=== PATIENT | female | born 2000 | race African-American/Black ===

== ENCOUNTER 2022-11-19 02:41 | Inpatient (IN) ==
[2022-11-19] MEDS ORDERED: ACETAMINOPHEN 1,000 MG/100 ML VIAL IV STA (02:54)
[2022-11-19] MEDS ORDERED: SODIUM CHLORIDE 0.9% 1000ML 1,000 ML IV SCH ×2 (03:00→07:19)
--- NOTE | 2022-11-19 03:41 | Emergency Department Note ---
History of Present Illness General Chief complaint: Cardiac Assessment Stated complaint: CHEST PAIN, HEAD PAIN, FEVER Time Seen by Provider: 11/19/22 02:54 History of Present Illness Maximum Pain Intensity: 8 This 22-year-old female originally from [place] who is up visiting from [facility] presents the ER for fever, chest pain, body aches and pains for the past day that is recurrent for the patient. Patient states she has seen other providers in the past with unclear etiology for her recurrent symptoms. Patient denies abdominal pain, neck stiffness, vomiting, diarrhea. No recent travel outside the . She currently resides in [place] but is here visiting friends. Patient was last in [facility] 5 years ago. Past Med/Surg History Social History Smoking Status: Never smoker Preferred Language: Marshallese Feels Safe at Home: Yes Review of Systems A total of 10 systems reviewed and were otherwise negative Physical Exam Vital Signs Vital Signs - 24 hr 11/19/22 02:48 11/19/22 02:54 11/19/22 02:54 Temperature 39.3 C H Temperature Source Oral Pulse Rate 143 H Pulse Rate from SpO2 Sensor Respiratory Rate 22 Respiratory Effort / Characteristics Non-Labored Respiratory Depth Normal Blood Pressure 119/65 Blood Pressure Mean 83 Pulse Oximetry 94 98 Oxygen Delivery Method Room Air Room Air Sepsis Recent Fever Within 48 Hours No Sepsis New/Unexplained Change in Mental Status No Sepsis Action Taken by Nursing No Action Required 11/19/22 03:09 11/19/22 02:54 11/19/22 03:11 Temperature Temperature Source Pulse Rate 117 H 118 H Pulse Rate from SpO2 Sensor Respiratory Rate 20 Respiratory Effort / Characteristics Respiratory Depth Blood Pressure Blood Pressure Mean Pulse Oximetry Oxygen Delivery Method Room Air Sepsis Recent Fever Within 48 Hours Sepsis New/Unexplained Change in Mental Status Sepsis Action Taken by Nursing 11/19/22 03:20 11/19/22 03:30 11/19/22 03:40 Temperature Temperature Source Pulse Rate 140 H 120 H 130 H Pulse Rate from SpO2 Sensor 121 H 130 H Respiratory Rate 19 19 14 Respiratory Effort / Characteristics Respiratory Depth Blood Pressure Blood Pressure Mean Pulse Oximetry 97 97 Oxygen Delivery Method Sepsis Recent Fever Within 48 Hours Sepsis New/Unexplained Change in Mental Status Sepsis Action Taken by Nursing 11/19/22 03:50 11/19/22 04:00 11/19/22 04:10 Temperature Temperature Source Pulse Rate 112 H 116 H 110 H Pulse Rate from SpO2 Sensor 114 H 115 H 111 H Respiratory Rate 21 23 20 Respiratory Effort / Characteristics Respiratory Depth Blood Pressure Blood Pressure Mean Pulse Oximetry 96 96 96 Oxygen Delivery Method Sepsis Recent Fever Within 48 Hours Sepsis New/Unexplained Change in Mental Status Sepsis Action Taken by Nursing 11/19/22 04:20 11/19/22 04:30 11/19/22 04:40 Temperature Temperature Source Pulse Rate 115 H 116 H 105 H Pulse Rate from SpO2 Sensor 114 H 115 H 105 H Respiratory Rate 19 21 15 Respiratory Effort / Characteristics Respiratory Depth Blood Pressure Blood Pressure Mean Pulse Oximetry 97 96 96 Oxygen Delivery Method Sepsis Recent Fever Within 48 Hours Sepsis New/Unexplained Change in Mental Status Sepsis Action Taken by Nursing 11/19/22 04:50 11/19/22 05:00 11/19/22 05:07 Temperature Temperature Source Pulse Rate 112 H 102 H 100 H Pulse Rate from SpO2 Sensor 110 H 104 H 99 H Respiratory Rate 16 15 20 Respiratory Effort / Characteristics Respiratory Depth Blood Pressure Blood Pressure Mean Pulse Oximetry 97 97 97 Oxygen Delivery Method Sepsis Recent Fever Within 48 Hours Sepsis New/Unexplained Change in Mental Status Sepsis Action Taken by Nursing 11/19/22 05:07 Temperature Temperature Source Pulse Rate Pulse Rate from SpO2 Sensor Respiratory Rate Respiratory Effort / Characteristics Respiratory Depth Blood Pressure 114/74 Blood Pressure Mean 81 Pulse Oximetry Oxygen Delivery Method Sepsis Recent Fever Within 48 Hours Sepsis New/Unexplained Change in Mental Status Sepsis Action Taken by Nursing VITALS: Vitals are noted on the nurse's note and reviewed by myself. Vital signs febrile and tachycardic. GENERAL: Pleasant female mildly ill-appearing, in no acute distress, nondiaphoretic, well-developed well-nourished. SKIN: The skin was without rashes, erythema, edema, or bruising. There is no tenting of the skin. Capillary reflex less than 2 seconds. HEAD: Normocephalic atraumatic. EARS: External auditory canals clear, tympanic membranes pearly blank without erythema or effusion bilaterally. EYES: Pupils equal round and reactive to light and accommodation. Conjunctivae without injection, sclerae without icterus. Extraocular movements intact. NOSE: Patent, turbinates without inflammation or discharge. No sinus tenderness. MOUTH: Mucous membranes moist. Pharynx without erythema or exudate. Uvula midline. Airway patent. Tongue does not deviate. NECK: Supple without nuchal rigidity. No lymphadenopathy. No thyromegaly. Cervical spine is nontender. No JVD. HEART: Tachycardic rate and rhythm LUNGS: Clear to auscultation bilaterally without wheezes, rales or rhonchi. No retractions or accessory muscle use. ABDOMEN: Positive bowel sounds x 4. Normal tympanic percussion. Soft, nontender, without masses or organomegaly. Murdock sign negative. No guarding or rebound tenderness. No CVA tenderness MUSCULOSKELETAL: No muscle atrophy, erythema, or edema noted. NEURO: Patient was alert and oriented to person place and time. Normal sensation to light and sharp touch. No focal neurological deficits. Course Administered Medications Magnesium Sulfate/Dextrose (Magnesium Sulfate / D5w) 1 gm in 100 mls @ 100 mls/hr IV Q1H JOSE Stop: 11/19/22 06:16 Last Admin: 11/19/22 04:52 Dose: 100 mls/hr Documented By: OLIVIA Discontinued Medications Acetaminophen (Ofirmev) 1,000 mg in 100 mls @ 400 mls/hr IV NOW STA Stop: 11/19/22 03:08 Last Admin: 11/19/22 03:37 Dose: 400 mls/hr Documented By: OLIVIA Sodium Chloride (Nss 1000ml) 1,000 mls @ 999 mls/hr IV .Q1H1M JOSE Stop: 11/19/22 04:00 Last Admin: 11/19/22 03:37 Dose: 999 mls/hr Documented By: OLIVIA Ketorolac Tromethamine (Ketorolac Tromethamine 15 Mg/Ml Vial) 10 mg IV NOW STA Stop: 11/19/22 04:32 Last Admin: 11/19/22 04:42 Dose: 10 mg Documented By: OLIVIA Potassium Chloride (Potassium Chloride 10 Meq Tabcr) 40 meq PO NOW STA Stop: 11/19/22 04:32 Last Admin: 11/19/22 04:52 Dose: 40 meq Documented By: OLIVIA Medical Decision Making Medical Records Attestation: I reviewed the patient's medical records. Home Medications Current Medication List: was personally reviewed by me Laboratory Data Attestation: I reviewed the patient's lab results. 11/19/22 03:23 11/19/22 03:23 Lab Results 11/19/22 11/19/22 11/19/22 Range/Units 03:23 03:23 03:23 WBC 8.62 (4.8-10.8) K/ul RBC 5.15 (4.20-5.40) M/uL Hgb 12.4 (12.0-16.0) g/dl Hct 35.7 L (37.0-47.0) % MCV 69.3 L (80.0-100.0) fL MCH 24.1 L (25.0-34.0) pg MCHC 34.7 (32.0-36.0) g/dL RDW Std Deviation 41.2 (36.4-46.3) fL RDW Coeff of Gabe 16.8 H (11.5-14.5) % Plt Count 288 (130-400) K/uL MPV 10.8 (9.4-12.4) fL Immature Gran % (Auto) 0.1 % Neut % (Auto) 80.0 % Lymph % (Auto) 12.2 % Dolores % (Auto) 7.4 % Eos % (Auto) 0.1 % Baso % (Auto) 0.2 % Neut # (Auto) 6.89 H (1.40-6.50) K/uL Lymph # (Auto) 1.05 L (1.2-3.4) K/uL Dolores # (Auto) 0.64 H (0.11-0.59) K/uL Eos # (Auto) 0.01 (0-0.50) K/uL Baso # (Auto) 0.02 (0-0.2) K/uL Immature Gran # (Auto) 0.01 (0.01-0.20) K/uL Sodium 136 (136-145) mmol/L Potassium 3.1 L (3.5-5.1) mmol/L Chloride 106 (98-107) mmol/L Carbon Dioxide 22 (21-32) mmol/L Anion Gap 8 (3-11) BUN 8 (6-23) mg/dl Creatinine 0.93 (0.6-1.2) mg/dl Est Cr Clr Drug Dosing 112.8 ml/min Est GFR ( Amer) 101.1 ml/min Est GFR (Non-Af Amer) 87.2 ml/min BUN/Creatinine Ratio 8.6 L (10-20) Glucose 107 H (70-99(Fasting)) mg/dl Lactate 1.1 (0.4-2.0) mmol/L Calcium 8.8 (8.6-10.3) mg/dl Magnesium 1.6 L (1.7-2.4) mg/dl Total Bilirubin 0.4 (0.2-1.0) mg/dl Direct Bilirubin 0.1 (0-0.2) mg/dl AST 17 (13-39) U/L ALT 9 (7-52) U/L Alkaline Phosphatase 61 (34-104) U/L Troponin I High Sens < 2.3 (0-14) pg/ml Total Protein 7.3 (6.0-8.3) gm/dl Albumin 4.2 (3.4-5.0) gm/dl Procalcitonin (0-0.5) ng/ml HCG, Qual (Negative) Adenovirus (PCR) (NotDetected) Anaplasma Smear See Comment Babesia Smear See Comment B. pertussis DNA (PCR) (NotDetected) B.parapertussis DNA PCR (NotDetected) Lyme Disease IgG Ab (Negative) Lyme Disease IgM Ab (Negative) C. pneumoniae DNA (PCR) (NotDetected) Coronavirus OC43 (PCR) (NotDetected) Coronavirus HKU1 (PCR) (NotDetected) Coronavirus 229E (PCR) (NotDetected) SARS-CoV-2 (PCR) (NotDetected) Coronavirus NL63 (PCR) (NotDetected) Human Metapneumovir PCR (NotDetected) Influenza Type A (PCR) (NotDetected) Influenza Type B (PCR) (NotDetected) M. pneumoniae (PCR) (NotDetected) Parainfluenza 1 (PCR) (NotDetected) Parainfluenza 2 (PCR) (NotDetected) Parainfluenza 3 (PCR) (NotDetected) Parainfluenza 4 (PCR) (NotDetected) RSV (PCR) (NotDetected) Entero/Rhino (PCR) (NotDetected) 11/19/22 11/19/22 Range/Units 03:23 03:23 WBC (4.8-10.8) K/ul RBC (4.20-5.40) M/uL Hgb (12.0-16.0) g/dl Hct (37.0-47.0) % MCV (80.0-100.0) fL MCH (25.0-34.0) pg MCHC (32.0-36.0) g/dL RDW Std Deviation (36.4-46.3) fL RDW Coeff of Gabe (11.5-14.5) % Plt Count (130-400) K/uL MPV (9.4-12.4) fL Immature Gran % (Auto) % Neut % (Auto) % Lymph % (Auto) % Dolores % (Auto) % Eos % (Auto) % Baso % (Auto) % Neut # (Auto) (1.40-6.50) K/uL Lymph # (Auto) (1.2-3.4) K/uL Dolores # (Auto) (0.11-0.59) K/uL Eos # (Auto) (0-0.50) K/uL Baso # (Auto) (0-0.2) K/uL Immature Gran # (Auto) (0.01-0.20) K/uL Sodium (136-145) mmol/L Potassium (3.5-5.1) mmol/L Chloride (98-107) mmol/L Carbon Dioxide (21-32) mmol/L Anion Gap (3-11) BUN (6-23) mg/dl Creatinine (0.6-1.2) mg/dl Est Cr Clr Drug Dosing ml/min Est GFR ( Amer) ml/min Est GFR (Non-Af Amer) ml/min BUN/Creatinine Ratio (10-20) Glucose (70-99(Fasting)) mg/dl Lactate (0.4-2.0) mmol/L Calcium (8.6-10.3) mg/dl Magnesium (1.7-2.4) mg/dl Total Bilirubin (0.2-1.0) mg/dl Direct Bilirubin (0-0.2) mg/dl AST (13-39) U/L ALT (7-52) U/L Alkaline Phosphatase (34-104) U/L Troponin I High Sens (0-14) pg/ml Total Protein (6.0-8.3) gm/dl Albumin (3.4-5.0) gm/dl Procalcitonin 0.05 (0-0.5) ng/ml HCG, Qual Negative (Negative) Adenovirus (PCR) Not Detected (NotDetected) Anaplasma Smear Babesia Smear B. pertussis DNA (PCR) Not Detected (NotDetected) B.parapertussis DNA PCR Not Detected (NotDetected) Lyme Disease IgG Ab Negative (Negative) Lyme Disease IgM Ab Negative (Negative) C. pneumoniae DNA (PCR) Not Detected (NotDetected) Coronavirus OC43 (PCR) Not Detected (NotDetected) Coronavirus HKU1 (PCR) Not Detected (NotDetected) Coronavirus 229E (PCR) Not Detected (NotDetected) SARS-CoV-2 (PCR) DETECTED A* (NotDetected) Coronavirus NL63 (PCR) Not Detected (NotDetected) Human Metapneumovir PCR Not Detected (NotDetected) Influenza Type A (PCR) Not Detected (NotDetected) Influenza Type B (PCR) Not Detected (NotDetected) M. pneumoniae (PCR) Not Detected (NotDetected) Parainfluenza 1 (PCR) Not Detected (NotDetected) Parainfluenza 2 (PCR) Not Detected (NotDetected) Parainfluenza 3 (PCR) Not Detected (NotDetected) Parainfluenza 4 (PCR) Not Detected (NotDetected) RSV (PCR) Not Detected (NotDetected) Entero/Rhino (PCR) Not Detected (NotDetected) Imaging Data Attestation: I personally reviewed and interpreted this imaging study as follows: MDM Narrative Prior records/ancillary studies reviewed. Triage Nursing notes reviewed. Additional history obtained from nursing The patient's history was concerning for fever. Differential diagnosis: Etiologies such as tickborne illness, hepatitis, malaria, dengue fever, dengue viral syndrome, otitis, pharyngitis, pneumonia, influenza, meningitis, urinary tract infection, sepsis, bacteremia, as well as others were entertained. Physical examination: As above ER treatment provided: An order was placed for continuous cardiac monitoring. The monitor shows a rate of 60-1 50 with a sinus rhythm per my interpretation. IV fluids, Tylenol was ordered Toradol magnesium potassium were ordered On reassessment the patient felt better. Diagnostics interpreted by me: ECG: Ordered for tachycardia EKG: Normal sinus, normal intervals, no acute ST-T wave changes. Impression sinus tachycardia independently interpreted by myself I think arrhythmia is unlikely. EKG shows normal sinus rhythm with no interval abnormalities such as QT prolongation or WPW. There are no findings to suggest Brugada syndrome. Cardiac monitoring in the emergency department reveals no tachycardic or bradycardic dysrhythmia. Hypertrophic cardiomyopathy was considered but there are no clear historical elements pointing toward this. EKG is not suggestive. The QRS voltage is not extremely large and there are no suggestive Q waves. The labs Independently Interpreted by myself revealed low magnesium and potassium this is replaced orally Blood cultures pending Dengue fever pending Malaria smear pending Positive COVID Imaging studies: Chest x-ray with no acute consolidation, pneumothorax or free air per my independent interpretation Consultation: A consultation was placed with hospitalist. The case was discussed and diagnostics were reviewed. The patient was evaluated in the ER for further treatment. This appears to be consistent with recurrent fever with chest pain and COVID. This is recurrent. Patient is from [facility]. Medicine was consulted and the case was discussed. She will be admitted to the medical service. Labs and diagnostics were independent turbid by myself. No pneumonia on x-ray. Stable H&H. Negative troponin. Nonischemic EKG. Patient is agreeable treatment plan of admission. By the evaluation outlined above emergent etiologies such as otitis, pharyngitis, pneumonia, meningitis, sepsis, bacteremia, as well as others were deemed relatively unlikely. The pt informed about the findings as listed above. All questions were answered and pleased with the treatment. The chart was completed utilizing [employer] Speech voice recognition software. Grammatical errors, random word insertions, pronoun errors, and incomplete sentences are an occassional consequence of this system due to software limitations, ambient noise, and hardware issues. Any formal questions or concerns about the content, text, or information contained within the body of this dictation should be directly addressed to the physician assurance assistant for clarification. Impression & Plan Chest pain, Recurrent fever, cause unknown, Hypokalemia, Hypomagnesemia, COVID- 19 Discharge Plan Visit Data Chief Complaint: Cardiac Assessment Stated Complaint: CHEST PAIN, HEAD PAIN, FEVER ED Provider: Brittney Pressley ED Midlevel Provider: April Ramirez Discharge Problem: Chest pain, Recurrent fever, cause unknown, Hypokalemia, Hypomagnesemia, COVID- 19 Patient Disposition: Admitted As Inpatient Condition: Good Forms Stand Alone Forms: [facility] Referrals Referrals: PCP,NO [Physician] - Chest pain Qualifiers: Chest pain type: unspecified Qualified Code(s): R07.9 - Chest pain, unspecified
[2022-11-19 03:49] LABS: Basophils # (auto) 0.02 K/uL (0-0.2); Basophils % (auto) 0.2 %; Eosinophils # (auto) 0.01 K/uL (0-0.50); Eosinophils % (auto) 0.1 %; Hematocrit (blood only) 35.7 % (37.0-47.0); Hemoglobin 12.4 g/dl (12.0-16.0); Immature Granulocytes # (auto) 0.01 K/uL (0.01-0.20); Immature Granulocytes % (auto) 0.1 %; Lymphocytes # (auto) 1.05 K/uL (1.2-3.4); Lymphocytes % (auto) 12.2 %; Mean Corpuscular Hemoglobin 24.1 pg (25.0-34.0); Mean Corpuscular Hgb Conc 34.7 g/dL (32.0-36.0); Mean Corpuscular Volume 69.3 fL (80.0-100.0); Monocytes # (auto) 0.64 K/uL (0.11-0.59); Monocytes % (auto) 7.4 %; Neutrophils # (auto) 6.89 K/uL (1.40-6.50); RDW Coefficient of Variation 16.8 % (11.5-14.5); RDW Standard Deviation 41.2 fL (36.4-46.3); Red Blood Count 5.15 M/uL (4.20-5.40); White Blood Count 8.62 K/ul (4.8-10.8)
[2022-11-19 04:03] LABS: Pregnancy Test, Serum Negative (Negative)
[2022-11-19 04:05] LABS: Alanine Aminotransferase 9 U/L (7-52); Albumin Level 4.2 gm/dl (3.4-5.0); Alkaline Phosphatase 61 U/L (34-104); Anion Gap 8 (3-11); Aspartate Aminotransferase 17 U/L (13-39); BUN Creatinine Ratio 8.6 (10-20); Bilirubin Direct 0.1 mg/dl (0-0.2); Bilirubin,Total 0.4 mg/dl (0.2-1.0); Blood Urea Nitrogen 8 mg/dl (6-23); Calcium 8.8 mg/dl (8.6-10.3); Carbon Dioxide 22 mmol/L (21-32); Chloride 106 mmol/L (98-107); Creatinine Clr Calc Pharmacy 112.8 ml/min; Est GFR (African American) 101.1 ml/min; Est GFR (Non-African American) 87.2 ml/min; Glucose 107 mg/dl (70-99(Fasting)); Magnesium 1.6 mg/dl (1.7-2.4); Potassium 3.1 mmol/L (3.5-5.1); Sodium 136 mmol/L (136-145); Total Protein 7.3 gm/dl (6.0-8.3)
[2022-11-19 04:10] LABS: Troponin I High Sensitivity < 2.3 pg/ml (0-14)
[2022-11-19 04:13] LABS: Mean Platelet Volume 10.8 fL (9.4-12.4); Platelet Count 288 K/uL (130-400)
[2022-11-19 04:31] LABS: Adenovirus PCR Not Detected (NotDetected); Bordetella parapertussis PCR Not Detected (NotDetected); Bordetella pertussis PCR Not Detected (NotDetected); Chlamydia pneumoniae PCR Not Detected (NotDetected); Coronavirus 229E PCR Not Detected (NotDetected); Coronavirus HKU1 PCR Not Detected (NotDetected); Coronavirus NL63 PCR Not Detected (NotDetected); Coronavirus OC43PCR Not Detected (NotDetected); Human Metapneumovirus PCR Not Detected (NotDetected); Influenza A PCR Not Detected (NotDetected); Influenza B PCR Not Detected (NotDetected); Mycoplasma pneumoniae PCR Not Detected (NotDetected); Parainfluenza Virus 1 PCR Not Detected (NotDetected); Parainfluenza Virus 2 PCR Not Detected (NotDetected); Parainfluenza Virus 3 PCR Not Detected (NotDetected); Parainfluenza Virus 4 PCR Not Detected (NotDetected); Respiratory Syncytial VirusPCR Not Detected (NotDetected); Rhinovirus/Enterovirus PCR Not Detected (NotDetected)
[2022-11-19] MEDS ORDERED: KETOROLAC TROMETHAMINE 15 MG/ML VIAL IV STA (04:31)
[2022-11-19] MEDS ORDERED: POTASSIUM CHLORIDE 10 MEQ TABCR PO STA (04:31)
[2022-11-19] MEDS: MAGNESIUM SULFATE / D5W 1 GM/100 ML BAG IV SCH ×2 (04:52→06:05)
[2022-11-19 04:57] LABS: Procalcitonin 0.05 ng/ml (0-0.5)
[2022-11-19 05:01] LABS: Coronavirus CoV-2 (COVID19)PCR DETECTED (NotDetected)
[2022-11-19 05:03] LABS: Lyme Ab IgM w/WB Rflx Negative (Negative)
[2022-11-19 05:09] LABS: Lyme Ab IgG w/WB Rflx Negative (Negative)
--- NOTE | 2022-11-19 06:11 | History & Physical Report ---
Date of Service November 19, 2022 Assessment & Plan (1) COVID-19: Plan: 22-year-old female with history of depression currently not on medications presents with fever headache and cough and chest pain and body aches and found to have COVID. COVID Patient is vaccinated and posted once When she came in she was tachycardic and having high fevers We will follow CT chest for PE rule out COVID precautions Saturating okay on room air IV fluids and close monitor. Recurrent fevers Patient states since October 1999 31 October 2021 she had multiple admissions for high fevers. Says had multiple work-ups which were negative. Will follow CT chest and CT abdomen pelvis We are ordered malaria work-up and also dengue fever work-up which will be followed Follow cultures Consult ID DVT prophylaxis Lovenox Disposition Med telemetry History of Present Illness Chief Complaint: Fevers, chest pain and body aches. COVID-positive Primary Care Provider: YUE RÍOS This is a 22-year-old female with past medical significant for depression but currently not on medications who is from [facility] visiting [place] woke up in the morning woke up after morning with chest pains, cough and fevers. Later developed body aches and fevers. Patient is patient is from [facility] but did not go out of [facility] since last 6 years. Patient states since October 30, 2019 to May 2021 she had multiple admissions in [facility] for similar symptoms of high fevers. Patient states all the time his COVID was negative. As per patient she had work-up for malaria though she was not in [facility] for the last 6 years and results came back negative. She also had a bronchoscopy and colonoscopy which were unremarkable. When she came in she was tachycardic with heart rate in 140s. Currently still spiking temperatures but heart rates are better. Has headache. No blurred visions. Has some runny nose. No earaches. Has sore throat. Appetite is okay. No difficulty swallowing. Still has chest pain on the left side though better than from the morning. He has some nausea. No abdominal pain. Patient patient says his alternates with diarrhea and constipation. Normal bladder movements. No recent weight gain or weight loss. Denies any night sweats. Past medical history as mentioned above. 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 Right benign breast mass resected. Bronchoscopy and colonoscopy. Appendectomy when she was 8 years old. Medications none Family history significant for heart disease Social history denies smoking history, no alcohol use, no drug abuse as per patient. Past Med/Surg History Social History Smoking Status: Never smoker Preferred Language: Norwegian Feels Safe at Home: Yes Review of Systems Review of Systems: All systems reviewed & are unremarkable except as noted in Subjective Physical Exam Physical Exam: NEEDS EDITING General- adult Head- atraumatic Eyes- PERRL, ENT- oropharynx clear Neck- supple, no JVD, Lungs- clear to auscultation and percussion Heart- regular rhythm; no murmur, no gallop, no rub appreciated Abdomen- normal bowel sounds, soft, nontender, no masses or hepatosplenomegaly Extremities- no pretibial edema, no erythema Neuro- alert, oriented x 3; PERRL, ; no facial palsy; no dysarthria; non focal Skin- warm & dry Results & Data Results & Data Vital Signs (Past 12 Hours) Vital Signs Temp Pulse Resp BP Pulse Ox O2 Del Method 11/19/22 05:07 114/74 11/19/22 05:07 100 H 20 97 11/19/22 05:00 102 H 15 97 11/19/22 04:50 112 H 16 97 11/19/22 04:40 105 H 15 96 11/19/22 04:30 116 H 21 96 11/19/22 04:20 115 H 19 97 11/19/22 04:10 110 H 20 96 11/19/22 04:00 116 H 23 96 11/19/22 03:50 112 H 21 96 11/19/22 03:40 130 H 14 97 11/19/22 03:30 120 H 19 97 11/19/22 03:20 140 H 19 11/19/22 03:11 118 H 20 11/19/22 02:54 Room Air 11/19/22 03:09 117 H 11/19/22 02:54 98 Room Air 11/19/22 02:48 39.3 C H 143 H 22 119/65 94 Room Air Diagnostic Findings Laboratory Results WBC 8.62 K/ul (4.8-10.8) 11/19/22 03:23 RBC 5.15 M/uL (4.20-5.40) 11/19/22 03: Hgb 12.4 g/dl (12.0-16.0) 11/19/22 03: Hct 35.7 % (37.0-47.0) L 11/19/22 03:23 MCV 69.3 fL (80.0-100.0) L 11/19/22 03: MCH 24.1 pg (25.0-34.0) L 11/19/22 03: MCHC 34.7 g/dL (32.0-36.0) 11/19/22 03: RDW Std Deviation 41.2 fL (36.4-46.3) 11/19/22 03: RDW Coeff of Gabe 16.8 % (11.5-14.5) H 11/19/22 03: Plt Count 288 K/uL (130-400) 11/19/22 03: MPV 10.8 fL (9.4-12.4) 11/19/22 03:23 Immature Gran % (Auto) 0.1 % 11/19/22 03: Neut % (Auto) 80.0 % 11/19/22 03:23 Lymph % (Auto) 12.2 % 11/19/22 03:23 Thayer % (Auto) 7.4 % 11/19/22 03: Eos % (Auto) 0.1 % 11/19/22 03: Baso % (Auto) 0.2 % 11/19/22 03:23 Neut # (Auto) 6.89 K/uL (1.40-6.50) H 11/19/22 03:23 Lymph # (Auto) 1.05 K/uL (1.2-3.4) L 11/19/22 03:23 Thayer # (Auto) 0.64 K/uL (0.11-0.59) H 11/19/22 03:23 Eos # (Auto) 0.01 K/uL (0-0.50) 11/19/22 03:23 Baso # (Auto) 0.02 K/uL (0-0.2) 11/19/22 03:23 Immature Gran # (Auto) 0.01 K/uL (0.01-0.20) 11/19/22 03:23 Sodium 136 mmol/L (136-145) 11/19/22 03:23 Potassium 3.1 mmol/L (3.5-5.1) L 11/19/22 03:23 Chloride 106 mmol/L (98-107) 11/19/22 03:23 Carbon Dioxide 22 mmol/L (21-32) 11/19/22 03:23 Anion Gap 8 (3-11) 11/19/22 03:23 BUN 8 mg/dl (6-23) 11/19/22 03:23 Creatinine 0.93 mg/dl (0.6-1.2) 11/19/22 03:23 Est Cr Clr Drug Dosing 112.8 ml/min 11/19/22 03:23 Est GFR ( Amer) 101.1 ml/min 11/19/22 03:23 Est GFR (Non-Af Amer) 87.2 ml/min 11/19/22 03:23 BUN/Creatinine Ratio 8.6 (10-20) L 11/19/22 03:23 Glucose 107 mg/dl (70-99(Fasting)) H 11/19/22 03:23 Lactate 1.1 mmol/L (0.4-2.0) 11/19/22 03:23 Calcium 8.8 mg/dl (8.6-10.3) 11/19/22 03:23 Magnesium 1.6 mg/dl (1.7-2.4) L 11/19/22 03:23 Total Bilirubin 0.4 mg/dl (0.2-1.0) 11/19/22 03:23 Direct Bilirubin 0.1 mg/dl (0-0.2) 11/19/22 03:23 AST 17 U/L (13-39) 11/19/22 03:23 ALT 9 U/L (7-52) 11/19/22 03:23 Alkaline Phosphatase 61 U/L (34-104) 11/19/22 03:23 Troponin I High Sens < 2.3 pg/ml (0-14) 11/19/22 03:23 Total Protein 7.3 gm/dl (6.0-8.3) 11/19/22 03:23 Albumin 4.2 gm/dl (3.4-5.0) 11/19/22 03:23 Procalcitonin 0.05 ng/ml (0-0.5) 11/19/22 03:23 HCG, Qual Negative (Negative) 11/19/22 03:23 Adenovirus (PCR) Not Detected (NotDetected) 11/19/22 03:23 Anaplasma Smear See Comment 11/19/22 03:23 Babesia Smear See Comment 11/19/22 03:23 B. pertussis DNA (PCR) Not Detected (NotDetected) 11/19/22 03:23 B.parapertussis DNA PCR Not Detected (NotDetected) 11/19/22 03:23 Lyme Disease IgG Ab Negative (Negative) 11/19/22 03:23 Lyme Disease IgM Ab Negative (Negative) 11/19/22 03:23 C. pneumoniae DNA (PCR) Not Detected (NotDetected) 11/19/22 03:23 Coronavirus OC43 (PCR) Not Detected (NotDetected) 11/19/22 03:23 Coronavirus HKU1 (PCR) Not Detected (NotDetected) 11/19/22 03:23 Coronavirus 229E (PCR) Not Detected (NotDetected) 11/19/22 03:23 SARS-CoV-2 (PCR) DETECTED (NotDetected) A* 11/19/22 03:23 Coronavirus NL63 (PCR) Not Detected (NotDetected) 11/19/22 03:23 Human Metapneumovir PCR Not Detected (NotDetected) 11/19/22 03:23 Influenza Type A (PCR) Not Detected (NotDetected) 11/19/22 03:23 Influenza Type B (PCR) Not Detected (NotDetected) 11/19/22 03:23 M. pneumoniae (PCR) Not Detected (NotDetected) 11/19/22 03:23 Parainfluenza 1 (PCR) Not Detected (NotDetected) 11/19/22 03:23 Parainfluenza 2 (PCR) Not Detected (NotDetected) 11/19/22 03:23 Parainfluenza 3 (PCR) Not Detected (NotDetected) 11/19/22 03:23 Parainfluenza 4 (PCR) Not Detected (NotDetected) 11/19/22 03:23 RSV (PCR) Not Detected (NotDetected) 11/19/22 03:23 Entero/Rhino (PCR) Not Detected (NotDetected) 11/19/22 03:23 Code Status & VTE Plan VTE Prophylaxis Plan VTE Prophylaxis will be ordered: Yes
--- NOTE | 2022-11-19 06:58 | XRay Report ---
SINGLE VIEW CHEST CLINICAL HISTORY: Sepsis. FINDINGS: An AP, portable, upright chest radiograph is obtained. No prior studies are available for c omparison at the time of dictation. The cardiomediastinal silhouette is unremarkable. There is mild e levation of left hemidiaphragm. The lungs and pleural spaces are clear. No pneumothorax is seen. The bony thorax is grossly intact. IMPRESSION: No active disease in the chest. ACT 112: Negative or not required by law. Electronically signed by: Zeeshan An M.D. 11/19/2022 6:57 AM
[2022-11-19] MEDS ORDERED: OPTIRAY 320 125ml IV ONE (07:04)
[2022-11-19] MEDS ORDERED: KETOROLAC TROMETHAMINE 15 MG/ML VIAL IV PRN (07:19)
[2022-11-19] MEDS ORDERED: NITROGLYCERIN SL 0.4 MG/TAB TAB SL PRN (07:19)
--- NOTE | 2022-11-19 07:38 | CT Scan Report ---
CT ANGIOGRAM OF THE CHEST CLINICAL HISTORY: Cough and fever. Covid. COMPARISON STUDY: Chest x-ray dated 11/19/2022. TECHNIQUE: Following the IV administration of 120 cc of Optiray 320, CT angiogram of the chest was pe rformed from the upper abdomen to the thoracic inlet utilizing the pulmonary embolus protocol. Images are reviewed in the axial, sagittal, and coronal planes. 3-D MIPS images are created and assessed. I V contrast was administered without complication. A dose lowering technique was utilized adhering to the principles of ALARA. CT DOSE: 748.92 mGy.cm FINDINGS: Thyroid: Imaged portions of the thyroid gland are normal in size and attenuation. Thoracic aorta: The thoracic aorta is normal in caliber and demonstrates standard 3-vessel arch anato my. No dissection is seen. Pulmonary vasculature: The pulmonary trunk is normal in caliber. There are no filling defects identif ied in main, lobar, or segmental pulmonary branches to suggest pulmonary embolus. Heart: The heart is normal in size and without pericardial effusion. Lungs and pleural spaces: The lungs and pleural spaces are clear. The trachea and central airways are patent. Mediastinum: There is no mediastinal lymphadenopathy. Grace: Clear. Axillae: There is no axillary lymphadenopathy. Upper abdomen: Partially visualized upper abdominal viscera is within normal limits. Skeletal structures: No lytic or blastic bony lesions are seen. IMPRESSION: 1. There is no evidence of pulmonary embolus in the main, lobar, or segmental pulmonary arteries. 2. The lungs are clear. ACT 112: Negative or not required by law. Electronically signed by: Zeeshan An M.D. 11/19/2022 7:35 AM
[2022-11-19 08:00] LABS: Basophils # (auto) 0.02 K/uL (0-0.2); Basophils % (auto) 0.3 %; Eosinophils % (auto) 3.1 %; Hematocrit (blood only) 35.2 % (37.0-47.0); Hemoglobin 12.1 g/dl (12.0-16.0); Immature Granulocytes # (auto) 0.02 K/uL (0.01-0.20); Immature Granulocytes % (auto) 0.3 %; Lymphocytes # (auto) 1.48 K/uL (1.2-3.4); Lymphocytes % (auto) 23.2 %; Mean Corpuscular Hemoglobin 24.1 pg (25.0-34.0); Mean Corpuscular Hgb Conc 34.4 g/dL (32.0-36.0); Mean Corpuscular Volume 70.1 fL (80.0-100.0); Mean Platelet Volume 10.4 fL (9.4-12.4); Monocytes # (auto) 0.49 K/uL (0.11-0.59); Monocytes % (auto) 7.7 %; Neutrophils # (auto) 4.18 K/uL (1.40-6.50); Neutrophils % (auto) 65.4 %; Platelet Count 316 K/uL (130-400); RDW Standard Deviation 42.2 fL (36.4-46.3); Red Blood Count 5.02 M/uL (4.20-5.40); White Blood Count 6.39 K/ul (4.8-10.8)
[2022-11-19 08:18] LABS: BUN Creatinine Ratio 8.1 (10-20); Calcium 8.2 mg/dl (8.6-10.3); Creatinine Clr Calc Pharmacy 140.5 ml/min; Est GFR (African American) 133.3 ml/min; Magnesium 2.4 mg/dl (1.7-2.4); Potassium 3.7 mmol/L (3.5-5.1)
[2022-11-19] MEDS: ENOXAPARIN INJ 40 MG/0.4 ML SYR SQ SCH (10:03)
[2022-11-19] MEDS: ACETAMINOPHEN 325 MG TAB PO PRN ×2 (12:40→19:47)
--- NOTE | 2022-11-19 14:17 | Communication Note ---
Date of Service: November 19, 2022 Patient admitted for febrile illness. Seen and examined at bedside; was sleeping; wakes with verbal stimuli. Reports cough. Chest x-ray and CTA chest personally reviewed; no acute findings COVID-19 positive Blood culture pending Obtain urinalysis Extensive infectious work-up sent. Started on empiric ceftriaxone and Doxy Infectious disease consulted Constitutional: Awake alert oriented x3; appears tired. Respiratory: normal respiratory effort, lungs clear to auscultation, no wheeze, rales, rhonchi. Normal insp/exp effort, no accessory muscle use Cardiovascular: RRR, no murmur, no edema Vessels: no JVD or carotid bruit Chest: normal inspection of chest Abdomen: normal bowel sounds, soft, nontender, no hepatosplenomegaly Musculoskeletal: no cyanosis or clubbing, extremities motor strength 5/5 Skin: no rashes, warm and dry normal turgor Neurologic: PERRL, EOMI, accommodation nl, no face palsy, no dysarthria CN's II- XI intact bilaterally and moves all extremities Psychiatric: A+Ox3, euthymic affect
[2022-11-19] MEDS: cefTRIAXone SODIUM 2,000 MG in DEXTROSE 5% 50 ML IV SCH (16:09)
--- NOTE | 2022-11-19 17:54 | Electrocardiogram Report ---
Test Reason : Blood Pressure : / mmHG Vent. Rate : 129 BPM Atrial Rate : 129 BPM P-R Int : 120 ms QRS Dur : 062 ms QT Int : 276 ms P-R-T Axes : 064 009 021 degrees QTc Int : 404 ms Sinus tachycardia Possible Left atrial enlargement Abnormal ECG No previous ECGs available Confirmed by Haroon eHart ([id number]) on 11/19/2022 5:53:58 PM Referred By: REFERRED SELF Confirmed By:Mushtaq Heart
[2022-11-19] MEDS: guaiFENesin/DEXTROM SYRUP 100MG/10MG 5ML UDC PO PRN (19:48)
[2022-11-19] MEDS: DOXYCYCLINE HYCLATE 100 MG CAP PO SCH (20:55)
[2022-11-19 21:52] LABS: Appearance Urine Clear (Clear); Bacteria Urine Automated Negative (Negative); Bilirubin Urine Negative (Negative); Blood Urine Negative (Negative); Color Urine Yellow; Glucose Urine UA Negative (Negative); Ketones Urine Negative (Negative); Leukocyte Esterase Urine 1+ (Negative); Nitrite Urine Negative (Negative); Protein Urine Negative (Negative); RBC Urine Automated 0-4 /hpf (0-4); Specific Gravity Urine 1.016 (1.000-1.030); Urobilinogen Urine Negative (Negative); pH Urine 6.5 (4.5-7.5)
[2022-11-19] MEDS ORDERED: KETOROLAC 30 MG/ML VIAL IV ONE (23:00)
[2022-11-20] MEDS ORDERED: ZOLPIDEM TARTRATE 5 MG TAB PO STA (00:21)
[2022-11-20] MEDS ORDERED: diphenhydrAMINE Capsule 25 MG CAP PO ONE (00:22)
[2022-11-20] MEDS ORDERED: traMADol HCL 50 MG TABLET PO STA (00:23)
[2022-11-20] MEDS ORDERED: SODIUM CHLORIDE 0.9% 1000ML 1,000 ML IV SCH (00:30)
[2022-11-20] MEDS: ACETAMINOPHEN 325 MG TAB PO PRN ×2 (05:58→15:58)
[2022-11-20] MEDS: DOXYCYCLINE HYCLATE 100 MG CAP PO SCH ×2 (07:38→20:23)
[2022-11-20] MEDS: ENOXAPARIN INJ 40 MG/0.4 ML SYR SQ SCH (07:38)
[2022-11-20 12:33] LABS: HBSAG NON-REACTIVE (NON-REACTIVE); Hepatitis A Antibody IgM NON-REACTIVE (NON-REACTIVE); Hepatitis B Core Antibody IgM NON-REACTIVE (NON-REACTIVE)
[2022-11-20] MEDS: guaiFENesin/DEXTROM SYRUP 100MG/10MG 5ML UDC PO PRN ×2 (12:38→20:23)
[2022-11-20] MEDS: cefTRIAXone SODIUM 2,000 MG in DEXTROSE 5% 50 ML IV SCH (12:38)
[2022-11-20] MEDS: POLYETHYLENE (MIRALAX) 17 GM PACK PO SCH (14:02)
[2022-11-20] MEDS: DOCUSATE SODIUM/SENNA 50/8.6MG TAB PO SCH ×2 (14:03→20:23)
--- NOTE | 2022-11-20 14:25 | Electrocardiogram Report ---
Test Reason : Blood Pressure : / mmHG Vent. Rate : 102 BPM Atrial Rate : 102 BPM P-R Int : 120 ms QRS Dur : 066 ms QT Int : 336 ms P-R-T Axes : 042 -02 -04 degrees QTc Int : 437 ms Sinus tachycardia Moderate voltage criteria for LVH, may be normal variant Nonspecific T wave abnormality Abnormal ECG When compared with ECG of 19-NOV-2022 03:01, No significant change was found Confirmed by Haroon Heart ([id number]) on 11/20/2022 2:25:30 PM Referred By: REFERRED SELF Confirmed By:Mushtaq Heart
[2022-11-20] MEDS ORDERED: SODIUM CHLORIDE 0.9% 1000ML 1,000 ML IV ONE (16:01)
--- NOTE | 2022-11-20 16:12 | Hospitalist Progress Note ---
Date of Service November 20, 2022 Assessment & Plan (1) COVID-19: Plan: Patient is a 22-year-old female with history of depression currently not on medications presents with fever headache and cough and chest pain and body aches and found to have COVID. COVID 19 Infection --CTA:There is no evidence of pulmonary embolus in the main, lobar, or segmental pulmonary arteries. The lungs are clear. Saturating well on room air Procalcitonin 0.05 Empirically on Rocephin, doxycycline We will consider steroids if develops hypoxia Antitussives as needed Pulmonary hygiene COVID precautions Sinus tachycardia Likely due to above Monitor Constipation Started on bowel regimen KUB pending Recurrent fevers (FUO) Patient states since October 1999 31 October 2021 she had multiple admissions for high fevers. Says had multiple work-ups which were negative. Previously evaluated at [facility] as well CT chest as above CT abdomen pelvis pending Appreciate ID input Blood cultures pending Smear for parasites negative Other serological tests pending Follows with rheumatology as outpatient as well DVT Px: Lovenox SQ Code Status Full Code Admission and Anticipated Discharge Date Admission Date: November 19, 2022 Subjective Patient is seen and examined at bedside Continues to to be febrile Reports chills, headache, nausea, constipation Also reports cough with yellowish expectoration associated with sinus congestion Has chest pain with cough Denies any dyspnea, dizziness No other complaints Review of Systems Review of Systems: All systems reviewed & are unremarkable except as noted in Subjective Physical Exam Physical Exam: Physical Exam: Vitals signs as noted above General Appearance:Obese, no apparent distress Head: normocephalic, Atraumatic Eyes: normal inspection, EOMI Neck: supple, Trachea midline Respiratory/Chest: Decreased breath sounds, CTA, No accessory muscle use Cardiovascular: S1, S2, No murmur Abdomen/GI:Soft, Non tender, Bowel sounds present Extremities/Musculoskeletal:normal inspection, no edema Neurologic/Psych:AAOX3, grossly no focal neurological deficits Skin: normal color, warm Results & Data Results & Data Vital Signs (Past 12 Hours) Vital Signs Temp Pulse Pulse Pulse Resp BP Pulse Ox 11/20/22 15:54 124 H 11/20/22 15:46 39.4 C H 117 H 18 128/74 97 11/20/22 10:54 37.8 C H 106 H 18 114/74 96 11/20/22 09:46 11/20/22 07:37 38 C H 136 H 18 120/86 96 11/20/22 07:19 11/20/22 07:14 110 H 11/20/22 05:55 39.6 C H Pulse Ox O2 Del Method O2 Del Method 11/20/22 15:54 11/20/22 15:46 Room Air 11/20/22 10:54 Room Air 11/20/22 09:46 Room Air 11/20/22 07:37 Room Air 11/20/22 07:19 96 Room Air 11/20/22 07:14 11/20/22 05:55 Laboratory Results Urine 11/19/22 Range/Units Unknown Urine Color Yellow Urine Appearance Clear (Clear) Urine pH 6.5 (4.5-7.5) Ur Specific [place] 1.016 (1.000-1.030) Urine Protein Negative (Negative) Urine Glucose (UA) Negative (Negative)
--- NOTE | 2022-11-20 20:51 | XRay Report ---
XR KUB/Abdomen 1 view CLINICAL HISTORY: constipation TECHNIQUE: 1 view of the abdomen was obtained. Comparison: None available at the time of this dictation. FINDINGS: Lung bases are unremarkable. The osseous structures are grossly unremarkable. Multiple gas-distended loops of small bowel are seen measuring up to 46 mm. Small stool burden is seen. IMPRESSION: Gas-distended loops of small bowel are seen concerning for ileus versus partial obstruction. Small st ool burden is seen without evidence of fecal impaction. ACT 112: Negative or not required by law. Electronically signed by: Yazan Arce M.D. 11/20/2022 8:49 PM
[2022-11-20] MEDS ORDERED: MELATONIN 3 MG TAB PO PRN (23:41)
--- NOTE | 2022-11-20 23:44 | Ultrasound Report ---
ULTRASOUND BILATERAL LOWER EXTREMITY VENOUS CLINICAL HISTORY: Leg pain. COMPARISON STUDY: No priors. TECHNIQUE: Real-time, grayscale, and color Doppler sonography of the deep veins of the right and left lower extremity was performed from the inguinal crease to the calf. Compression and augmentation wer e utilized. FINDINGS: There is no sonographic evidence of deep venous thrombosis identified in the right or left lower extremity. The common femoral, superficial femoral, and popliteal veins are patent and normally compressible bilaterally. The greater saphenous vein and the profunda femoris vein at the junction w ith the common femoral vein are clear in both legs. The visualized calf veins are patent bilaterally. IMPRESSION: There is no sonographic evidence of deep venous thrombosis identified in the right or lef t lower extremity. ACT 112: Negative or not required by law. Electronically signed by: Zeeshan An M.D. 11/20/2022 11:41 PM
[2022-11-21] MEDS ORDERED: MELATONIN 3 MG TAB PO ONE
[2022-11-21] MEDS: ACETAMINOPHEN 325 MG TAB PO PRN (02:58)
[2022-11-21 06:26] LABS: Hematocrit (blood only) 34.7 % (37.0-47.0); Hemoglobin 11.9 g/dl (12.0-16.0); Mean Corpuscular Hemoglobin 24.1 pg (25.0-34.0); Mean Corpuscular Hgb Conc 34.3 g/dL (32.0-36.0); Mean Corpuscular Volume 70.4 fL (80.0-100.0); Mean Platelet Volume 10.6 fL (9.4-12.4); Platelet Count 283 K/uL (130-400); RDW Standard Deviation 42.5 fL (36.4-46.3); Red Blood Count 4.93 M/uL (4.20-5.40); White Blood Count 4.48 K/ul (4.8-10.8)
[2022-11-21 06:45] LABS: BUN Creatinine Ratio 7.6 (10-20); C Reactive Protein 5.32 mg/dl (0-0.5); Calcium 8.3 mg/dl (8.6-10.3); Creatinine Clr Calc Pharmacy 131.4 ml/min; Est GFR (African American) 123.2 ml/min; Est GFR (Non-African American) 106.3 ml/min; Magnesium 1.8 mg/dl (1.7-2.4); Potassium 3.4 mmol/L (3.5-5.1)
--- NOTE | 2022-11-21 07:50 | CT Scan Report ---
ABDOMEN AND PELVIS CT WITHOUT CONTRAST CT DOSE: 1088.62 mGy.cm HISTORY: Acute constipation with generalized abdominal pain Fever, Constipation, abd pain TECHNIQUE: Multiaxial CT images of the abdomen and pelvis were performed without contrast. A dose lo wering technique was utilized adhering to the principles of ALARA. COMPARISON STUDY: [facility] 11/20/2012 FINDINGS: The lung bases are clear. The unenhanced liver, spleen, gallbladder, pancreas, kidneys, and adrenal glands are within normal limits. No bowel wall thickening or obstruction. Mild colonic fecal retention. Nonvisualization of the appendix without secondary signs of acute appendicitis. Mild nons pecific urinary bladder wall thickening. Uterus and adnexa are unremarkable. Mild subcutaneous emphys leanna of the right intra-abdominal wall suggestive of a medicinal injection site. Unremarkable osseous structures. IMPRESSION: 1. No acute intra-abdominal or intrapelvic abnormality identified. 2. Mild colonic fecal retention. ACT 112: Negative or not required by law. The above report was generated using voice recognition software. It may contain grammatical, syntax o r spelling errors. Electronically signed by: Geovanny Esteban M.D. 11/21/2022 7:48 AM
[2022-11-21] MEDS: ENOXAPARIN INJ 40 MG/0.4 ML SYR SQ SCH (09:23)
[2022-11-21] MEDS: DOCUSATE SODIUM/SENNA 50/8.6MG TAB PO SCH (09:24)
[2022-11-21] MEDS: DOXYCYCLINE HYCLATE 100 MG CAP PO SCH (09:24)
[2022-11-21] MEDS: POLYETHYLENE (MIRALAX) 17 GM PACK PO SCH (09:25)
[2022-11-21] MEDS: guaiFENesin/DEXTROM SYRUP 100MG/10MG 5ML UDC PO PRN (09:26)
[2022-11-21] MEDS ORDERED: POTASSIUM CHLORIDE CRTAB 20 MEQ TABCR PO ONE (10:01)
[2022-11-21] MEDS ORDERED: NSS + 20MEQ KCL 20 MEQ/1,000 ML BAG IV ONE (10:01)
--- NOTE | 2022-11-21 15:05 | Hospitalist Progress Note ---
Date of Service November 21, 2022 Assessment & Plan (1) COVID-19: Plan: Patient is a 22-year-old female with history of depression currently not on medications presents with fever headache and cough and chest pain and body aches and found to have COVID. COVID 19 Infection --CTA:There is no evidence of pulmonary embolus in the main, lobar, or segmental pulmonary arteries. The lungs are clear. Saturating well on room air Procalcitonin 0.05 Empirically was on Rocephin, doxycycline--discontinue per ID Antitussives as needed Pulmonary hygiene Continue COVID precautions Discharge home today per patient's request Sinus tachycardia Likely due to above Monitor Constipation --CT ABD:No acute intra-abdominal or intrapelvic abnormality identified. Mild colonic fecal retention. Continue bowel regimen Had BM today Recurrent fevers (FUO) Patient states since October 1999 31 October 2021 she had multiple admissions for high fevers. Says had multiple work-ups which were negative. Previously evaluated at [facility] as well CT chest as above CT abdomen pelvis as above Appreciate ID input Blood cultures: Negative to date for 48 hrs Repeat blood cultures pending Smear for parasites negative Other serological tests pending Q fever, chikungunya, Dengue, LALIT, QuantiFERON gold, rheumatoid factor pending Follows with rheumatology as outpatient as well Advised to follow-up with primary care physician/treasury agent for further recommendations DVT Px: Lovenox SQ Code Status Full Code Admission and Anticipated Discharge Date Admission Date: November 19, 2022 Subjective Patient is seen and examined at bedside States feeling better today Afebrile today Still has some cough with expectoration Tolerating food better Denies any dyspnea, dizziness, nausea, vomiting, chest pain, abdominal pain Prefers to be discharged home today Saturating well on room air Review of Systems Review of Systems: All systems reviewed & are unremarkable except as noted in Subjective Physical Exam Physical Exam: Physical Exam: Vitals signs as noted above General Appearance:Obese, no apparent distress Head: normocephalic, Atraumatic Eyes: normal inspection, EOMI Neck: supple, Trachea midline Respiratory/Chest: Decreased breath sounds, CTA, No accessory muscle use Cardiovascular: S1, S2, No murmur Abdomen/GI:Soft, Non tender, Bowel sounds present Extremities/Musculoskeletal:normal inspection, no edema Neurologic/Psych:AAOX3, grossly no focal neurological deficits Skin: normal color, warm Results & Data Results & Data Vital Signs (Past 12 Hours) Vital Signs Temp Pulse Resp BP Pulse Ox O2 Del Method 11/21/22 11:07 36.8 C 91 H 18 135/76 97 Room Air 11/21/22 07:38 36.9 C 70 16 135/76 96 Room Air 11/21/22 05:16 37.1 C Laboratory Results Short CBC 11/21/22 Range/Units 06:08 WBC 4.48 L (4.8-10.8) K/ul Hgb 11.9 L (12.0-16.0) g/dl Hct 34.7 L (37.0-47.0) % Plt Count 283 (130-400) K/uL BMP 11/21/22 06:08 Sodium 138 Potassium 3.4 L Chloride 110 H Carbon Dioxide 20 L BUN 6 Creatinine 0.79 Glucose 90 Calcium 8.3 L Cardiac Enzymes 11/21/22 Range/Units 06:08 Total Creatine Kinase 413 H (26-192) U/L
--- NOTE | 2022-11-21 15:41 | Discharge Summary ---
Date of Service November 21, 2022 Admission HPI Per Admitting Provider This is a 22-year-old female with past medical significant for depression but currently not on medications who is from [facility] visiting a friend in [place] woke up in the morning woke up after morning with chest pains, cough and fevers. Later developed body aches and fevers. Patient is patient is from [facility] but did not go out of [facility] since last 6 years. Patient states since October 30, 2019 to May 2021 she had multiple admissions in [facility] for similar symptoms of high fevers. Patient states all the time his COVID was negative. As per patient she had work-up for malaria though she was not in [place] for the last 6 years and results came back negative. She also had a bronchoscopy and colonoscopy which were unremarkable. When she came in she was tachycardic with heart rate in 140s. Currently still spiking temperatures but heart rates are better. Has headache. No blurred visions. Has some runny nose. No earaches. Has sore throat. Appetite is okay. No difficulty swallowing. Still has chest pain on the left side though better than from the morning. He has some nausea. No abdominal pain. Patient patient says his alternates with diarrhea and constipation. Normal bladder movements. No recent weight gain or weight loss. Denies any night sweats. Past medical history as mentioned above. 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 Right benign breast mass resected. Bronchoscopy and colonoscopy. Appendectomy when she was 8 years old. Medications none Family history significant for heart disease Social history denies smoking history, no alcohol use, no drug abuse as per patient. Admission Exam Per Admitting Provider General- adult Head- atraumatic Eyes- PERRL, ENT- oropharynx clear Neck- supple, no JVD, Lungs- clear to auscultation and percussion Heart- regular rhythm; no murmur, no gallop, no rub appreciated Abdomen- normal bowel sounds, soft, nontender, no masses or hepatosplenomegaly Extremities- no pretibial edema, no erythema Neuro- alert, oriented x 3; PERRL, ; no facial palsy; no dysarthria; non focal Skin- warm & dry Principal Diagnosis COVID-19 infection Sinus tachycardia Constipation Recurrent fever of unknown origin Discharge Data Allergies Allergy/AdvReac Type Severity Reaction Status Date / Time No Known Allergies Allergy Unverified 11/19/22 06:13 Consultations 11/19/22 04:29 ED Decision to Admit Stat 11/19/22 08:00 Consult Infectious Diseases Routine Procedures Performed Laboratory Results WBC 4.48 K/ul (4.8-10.8) L 11/21/22 06:08 RBC 4.93 M/uL (4.20-5.40) 11/21/22 06:08 Hgb 11.9 g/dl (12.0-16.0) L 11/21/22 06:08 Hct 34.7 % (37.0-47.0) L 11/21/22 06:08 MCV 70.4 fL (80.0-100.0) L 11/21/22 06:08 MCH 24.1 pg (25.0-34.0) L 11/21/22 06:08 MCHC 34.3 g/dL (32.0-36.0) 11/21/22 06:08 RDW Std Deviation 42.5 fL (36.4-46.3) 11/21/22 06:08 RDW Coeff of Gabe 17.0 % (11.5-14.5) H 11/21/22 06:08 Plt Count 283 K/uL (130-400) 11/21/22 06:08 MPV 10.6 fL (9.4-12.4) 11/21/22 06:08 Immature Gran % (Auto) 0.3 % 11/19/22 07:44 Neut % (Auto) 65.4 % 11/19/22 07:44 Lymph % (Auto) 23.2 % 11/19/22 07:44 [place] % (Auto) 7.7 % 11/19/22 07:44 Eos % (Auto) 3.1 % 11/19/22 07:44 Baso % (Auto) 0.3 % 11/19/22 07:44 Neut # (Auto) 4.18 K/uL (1.40-6.50) 11/19/22 07:44 Lymph # (Auto) 1.48 K/uL (1.2-3.4) 11/19/22 07:44 [place] # (Auto) 0.49 K/uL (0.11-0.59) 11/19/22 07:44 Eos # (Auto) 0.20 K/uL (0-0.50) 11/19/22 07:44 Baso # (Auto) 0.02 K/uL (0-0.2) 11/19/22 07:44 Immature Gran # (Auto) 0.02 K/uL (0.01-0.20) 11/19/22 07:44 ESR 27 mm/hr (0-20) H 11/21/22 06:08 Sodium 138 mmol/L (136-145) 11/21/22 06:08 Potassium 3.4 mmol/L (3.5-5.1) L 11/21/22 06:08 Chloride 110 mmol/L (98-107) H 11/21/22 06:08 Carbon Dioxide 20 mmol/L (21-32) L 11/21/22 06:08 Anion Gap 8 (3-11) 11/21/22 06:08 BUN 6 mg/dl (6-23) 11/21/22 06:08 Creatinine 0.79 mg/dl (0.6-1.2) 11/21/22 06:08 Est Cr Clr Drug Dosing 131.4 ml/min 11/21/22 06:08 Est GFR ( Amer) 123.2 ml/min 11/21/22 06:08 Est GFR (Non-Af Amer) 106.3 ml/min 11/21/22 06:08 BUN/Creatinine Ratio 7.6 (10-20) L 11/21/22 06:08 Glucose 90 mg/dl (70-99(Fasting)) 11/21/22 06:08 Lactate 1.1 mmol/L (0.4-2.0) 11/19/22 03:23 Calcium 8.3 mg/dl (8.6-10.3) L 11/21/22 06:08 Magnesium 1.8 mg/dl (1.7-2.4) 11/21/22 06:08 Total Bilirubin 0.4 mg/dl (0.2-1.0) 11/19/22 03:23 Direct Bilirubin 0.1 mg/dl (0-0.2) 11/19/22 03:23 AST 17 U/L (13-39) 11/19/22 03:23 ALT 9 U/L (7-52) 11/19/22 03:23 Alkaline Phosphatase 61 U/L (34-104) 11/19/22 03:23 Total Creatine Kinase 413 U/L (26-192) H 11/21/22 06:08 Troponin I High Sens 2.5 pg/ml (0-14) 11/19/22 19:49 C-Reactive Protein 5.32 mg/dl (0-0.5) H 11/21/22 06:08 Total Protein 7.3 gm/dl (6.0-8.3) 11/19/22 03:23 Albumin 4.2 gm/dl (3.4-5.0) 11/19/22 03:23 Procalcitonin 0.05 ng/ml (0-0.5) 11/19/22 03:23 HCG, Qual Negative (Negative) 11/19/22 03:23 Urine Color Yellow 11/19/22 Unknown Urine Appearance Clear (Clear) 11/19/22 Unknown Urine pH 6.5 (4.5-7.5) 11/19/22 Unknown Ur Specific [place] 1.016 (1.000-1.030) 11/19/22 Unknown Urine Protein Negative (Negative) 11/19/22 Unknown Urine Glucose (UA) Negative (Negative) 11/19/22 Unknown Urine Ketones Negative (Negative) 11/19/22 Unknown Urine Blood Negative (Negative) 11/19/22 Unknown Urine Nitrite Negative (Negative) 11/19/22 Unknown Urine Bilirubin Negative (Negative) 11/19/22 Unknown Urine Urobilinogen Negative (Negative) 11/19/22 Unknown Ur Leukocyte Esterase 1+ (Negative) H 11/19/22 Unknown Urine WBC (Auto) 1-5 /hpf (0-5) 11/19/22 Unknown Urine RBC (Auto) 0-4 /hpf (0-4) 11/19/22 Unknown U Hyaline Cast (Auto) 1-5 /lpf (0-5) 11/19/22 Unknown U Epithel Cells (Auto) 10-20 /lpf (0-5) H 11/19/22 Unknown Urine Bacteria (Auto) Negative (Negative) 11/19/22 Unknown Adenovirus (PCR) Not Detected (NotDetected) 11/19/22 03:23 Anaplasma Smear See Comment 11/19/22 03:23 Babesia Smear See Comment 11/19/22 03:23 B. pertussis DNA (PCR) Not Detected (NotDetected) 11/19/22 03:23 B.parapertussis DNA PCR Not Detected (NotDetected) 11/19/22 03:23 Lyme Disease IgG Ab Negative (Negative) 11/19/22 03:23 Lyme Disease IgM Ab Negative (Negative) 11/19/22 03:23 C. pneumoniae DNA (PCR) Not Detected (NotDetected) 11/19/22 03:23 Coronavirus OC43 (PCR) Not Detected (NotDetected) 11/19/22 03:23 Coronavirus HKU1 (PCR) Not Detected (NotDetected) 11/19/22 03:23 Coronavirus 229E (PCR) Not Detected (NotDetected) 11/19/22 03:23 SARS-CoV-2 (PCR) DETECTED (NotDetected) A* 11/19/22 03:23 Coronavirus NL63 (PCR) Not Detected (NotDetected) 11/19/22 03:23 Hepatitis A IgM Ab NON-REACTIVE (NON-REACTIVE) 11/19/22 03:50 Hep Bs Antigen NON-REACTIVE (NON-REACTIVE) 11/19/22 03:50 Hep Bs Ag Confirmation TNP 11/19/22 03:50 Hep B Core IgM Ab NON-REACTIVE (NON-REACTIVE) 11/19/22 03:50 Hepatitis C Ab (EIA) NON-REACTIVE (NON-REACTIVE) 11/19/22 03:50 Human Metapneumovir PCR Not Detected (NotDetected) 11/19/22 03:23 Influenza Type A (PCR) Not Detected (NotDetected) 11/19/22 03:23 Influenza Type B (PCR) Not Detected (NotDetected) 11/19/22 03:23 M. pneumoniae (PCR) Not Detected (NotDetected) 11/19/22 03:23 Parainfluenza 1 (PCR) Not Detected (NotDetected) 11/19/22 03:23 Parainfluenza 2 (PCR) Not Detected (NotDetected) 11/19/22 03:23 Parainfluenza 3 (PCR) Not Detected (NotDetected) 11/19/22 03:23 Parainfluenza 4 (PCR) Not Detected (NotDetected) 07/11/23 03:23 RSV (PCR) Not Detected (NotDetected) 11/19/22 03:23 Entero/Rhino (PCR) Not Detected (NotDetected) 11/19/22 03:23 Impressions Chest X-Ray 11/19/22 02:54 SINGLE VIEW CHEST CLINICAL HISTORY: Sepsis. FINDINGS: An AP, portable, upright chest radiograph is obtained. No prior studies are available for comparison at the time of dictation. The cardiomediastinal silhouette is unremarkable. There is mild elevation of left hemidiaphragm. The lungs and pleural spaces are clear. No pneumothorax is seen. The bony thorax is grossly intact. IMPRESSION: No active disease in the chest. ACT 112: Negative or not required by law. Electronically signed by: Zeeshan An M.D. 11/19/2022 6:57 AM Chest CTA 11/19/22 05:42 CT ANGIOGRAM OF THE CHEST CLINICAL HISTORY: Cough and fever. Covid. COMPARISON STUDY: Chest x-ray dated 11/19/2022. TECHNIQUE: Following the IV administration of 120 cc of Optiray 320, CT angiogram of the chest was performed from the upper abdomen to the thoracic inlet utilizing the pulmonary embolus protocol. Images are reviewed in the axial, sagittal, and coronal planes. 3-D MIPS images are created and assessed. IV contrast was administered without complication. A dose lowering technique was utilized adhering to the principles of ALARA. CT DOSE: 748.92 mGy.cm FINDINGS: Thyroid: Imaged portions of the thyroid gland are normal in size and atte nuation. Thoracic aorta: The thoracic aorta is normal in caliber and demonstrates standard 3-vessel arch anatomy. No dissection is seen. Pulmonary vasculature: The pulmonary trunk is normal in caliber. There are no filling defects identified in main, lobar, or segmental pulmonary branches to suggest pulmonary embolus. Heart: The heart is normal in size and without pericardial effusion. Lungs and pleural spaces: The lungs and pleural spaces are clear. The trachea and central airways are patent. Mediastinum: There is no mediastinal lymphadenopathy. Grace: Clear. Axillae: There is no axillary lymphadenopathy. Upper abdomen: Partially visualized upper abdominal viscera is within normal limits. Skeletal structures: No lytic or blastic bony lesions are seen. IMPRESSION: 1. There is no evidence of pulmonary embolus in the main, lobar, or segmental pulmonary arteries. 2. The lungs are clear. ACT 112: Negative or not required by law. Electronically signed by: Zeeshan An M.D. 11/19/2022 7:35 AM KUB X-Ray 11/20/22 13:00 XR KUB/Abdomen 1 view CLINICAL HISTORY: constipation TECHNIQUE: 1 view of the abdomen was obtained. Comparison: None available at the time of this dictation. FINDINGS: Lung bases are unremarkable. The osseous structures are grossly unremarkable. Multiple gas-distended loops of small bowel are seen measuring up to 46 mm. Small stool burden is seen. IMPRESSION: Gas-distended loops of small bowel are seen concerning for ileus versus partial obstruction. Small stool burden is seen without evidence of fecal impaction. ACT 112: Negative or not required by law. Electronically signed by: Yazan Arce M.D. 11/20/2022 8:49 PM Venous Doppler Study 11/20/22 16:02 ULTRASOUND BILATERAL LOWER EXTREMITY VENOUS CLINICAL HISTORY: Leg pain. COMPARISON STUDY: No priors. TECHNIQUE: Real-time, grayscale, and color Doppler sonography of the deep veins of the right and left lower extremity was performed from the inguinal crease to the calf. Compression and augmentation were utilized. FINDINGS: There is no sonographic evidence of deep venous thrombosis identified in the right or left lower extremity. The common femoral, superficial femoral, and popliteal veins are patent and normally compressible bilaterally. The greater saphenous vein and the profunda femoris vein at the junction with the common femoral vein are clear in both legs. The visualized calf veins are patent bilaterally. IMPRESSION: There is no sonographic evidence of deep venous thrombosis identified in the right or left lower extremity. ACT 112: Negative or not required by law. Electronically signed by: Zeeshan An M.D. 11/20/2022 11:41 PM Abdomen/Pelvis CT 11/21/22 07:[address] WITHOUT CONTRAST CT DOSE: 1088.62 mGy.cm HISTORY: Acute constipation with generalized abdominal pain Fever, Constipation, abd pain TECHNIQUE: Multiaxial CT images of the abdomen and pelvis were performed without contrast. A dose lowering technique was utilized adhering to the principles of ALARA. COMPARISON STUDY: KUB 11/20/2012 FINDINGS: The lung bases are clear. The unenhanced liver, spleen, gallbladder, pancreas, kidneys, and adrenal glands are within normal limits. No bowel wall thickening or obstruction. Mild colonic fecal retention. Nonvisualization of the appendix without secondary signs of acute appendicitis. Mild nonspecific urinary bladder wall thickening. Uterus and adnexa are unremarkable. Mild subcutaneous emphysema of the right intra-abdominal wall suggestive of a medicinal injection site. Unremarkable osseous structures. IMPRESSION: 1. No acute intra-abdominal or intrapelvic abnormality identified. 2. Mild colonic fecal retention. ACT 112: Negative or not required by law. The above report was generated using voice recognition software. It may contain grammatical, syntax or spelling errors. Electronically signed by: Geovanny Esteban M.D. 11/21/2022 7:48 AM Ordered Studies 11/19/22 05:42 CT angio chest PE protocol Stat 11/20/22 16:02 US venous doppler LE BI Routine 11/21/22 07:00 CT Abd and Pelvis [CT abd pelvis wo con] Routine Hospital Course (1) COVID-19: Patient is a 22-year-old female with history of depression currently not on medications presents with fever headache and cough and chest pain and body aches and found to have COVID. COVID 19 Infection --CTA:There is no evidence of pulmonary embolus in the main, lobar, or segmental pulmonary arteries. The lungs are clear. Saturating well on room air Procalcitonin 0.05 Empirically was on Rocephin, doxycycline--discontinue per ID Antitussives as needed Pulmonary hygiene Continue COVID precautions Discharge home today per patient's request Sinus tachycardia Likely due to above Monitor Constipation --CT ABD:No acute intra-abdominal or intrapelvic abnormality identified. Mild colonic fecal retention. Continue bowel regimen Had BM today Recurrent fevers (FUO) Patient states since October 1999 31 October 2021 she had multiple admissions for high fevers. Says had multiple work-ups which were negative. Previously evaluated at [facility] as well CT chest as above CT abdomen pelvis as above Appreciate ID input Blood cultures: Negative to date for 48 hrs Repeat blood cultures pending Smear for parasites negative Other serological tests pending Q fever, chikungunya, Dengue, LALIT, QuantiFERON gold, rheumatoid factor pending Follows with rheumatology as outpatient as well Advised to follow-up with primary care physician/vascular nurse for further recommendations DVT Px: Lovenox SQ Code Status Full Code Total Time Total Time Spent Total Time Spent (In Minutes): 55 mimutes Discharge Plan Discharge Items Patient Disposition: Home - Self-Care Reason For Visit: FEVERS, CHEST PAIN, BODY ACHE, COVID Discharge Diagnosis: COVID-19 infection Sinus tachycardia Constipation Recurrent fever of unknown origin Condition on Discharge: Good Activity: Per Instructions section Exercise/Sports: Wait until after follow-up appointment Non-emergency contact: Primary Care Provider Call non-emergency contact if: you have any medication questions, your symptoms worsen, your pain is concerning for you and you have a fever Follow-up/Referrals: Lacy Arguello MD [Primary Care Provider] - Diet: Heart Healthy Addtl Attending Provider Instructions: Follow-up with your primary care physician Dr. Arguello in 1 week --Your serological tests for Q fever, Chikungunya, dengue, LALIT, QuantiFERON gold, rheumatoid factor AND blood cultures are pending at the time of discharge. Follow-up with your physician for results Seek immediate medical attention if your symptoms reoccur or worsen Please take all medications as instructed on discharge list below. Please call if you have any questions or problems. You can reach a [facility] hospitalist on duty at [facility] 24 hours a day by calling [phone] Home Isolation COVID-19 Instructions The following information about Home Isolation is from the CDC Website: https://www.cdc.gov/coronavirus/2019-ncov/hcp/vjwyxtae-fuqhoqx-jwcgzh.html Stay home except to get medical care People who are mildly ill with COVID-19 are able to isolate at home during their illness. You should restrict activities outside your home, except for getting medical care. Do not go to work, school, or public areas. Avoid using public transportation, ride-sharing, or taxis. Separate yourself from other people and animals in your home People: As much as possible, you should stay in a specific room and away from other people in your home. Also, you should use a separate bathroom, if available. Animals: You should restrict contact with pets and other animals while you are sick with COVID-19, just like you would around other people. Although there have not been reports of pets or other animals becoming sick with COVID-19, it is still recommended that people sick with COVID-19 limit contact with animals until more information is known about the virus. When possible, have another member of your household care for your animals while you are sick. If you are sick with COVID-19, avoid contact with your pet, including petting, snuggling, being kissed or licked, and sharing food. If you must care for your pet or be around animals while you are sick, wash your hands before and after you interact with pets and wear a face mask. Call ahead before visiting your doctor If you have a medical appointment, call the healthcare provider and tell them that you have or may have COVID-19. This will help the healthcare providers office take steps to keep other people from getting infected or exposed. Wear a face mask You should wear a face mask when you are around other people (e.g., sharing a room or vehicle) or pets and before you enter a healthcare providers office. If you are not able to wear a face mask (for example, because it causes trouble breathing), then people who live with you should not stay in the same room with you, or they should wear a face mask if they enter your room. Cover your coughs and sneezes Cover your mouth and nose with a tissue when you cough or sneeze. Throw used ti ssues in a lined trash can. Immediately wash your hands with soap and water for at least 20 seconds or, if soap and water are not available, clean your hands with an alcohol-based hand equine manager that contains at least 60% alcohol. Clean your hands often Wash your hands often with soap and water for at least 20 seconds, especially after blowing your nose, coughing, or sneezing; going to the bathroom; and before eating or preparing food. If soap and water are not readily available, use an alcohol-based hand equine manager with at least 60% alcohol, covering all surfaces of your hands and rubbing them together until they feel dry. Soap and water are the best option if hands are visibly dirty. Avoid touching your eyes, nose, and mouth with unwashed hands. Avoid sharing personal household items You should not share dishes, drinking glasses, cups, eating utensils, towels, or bedding with other people or pets in your home. After using these items, they should be washed thoroughly with soap and water. Clean all high-touch surfaces everyday High touch surfaces include counters, tabletops, doorknobs, bathroom fixtures, toilets, phones, keyboards, tablets, and bedside tables. Also, clean any surfaces that may have blood, stool, or body fluids on them. Use a household cleaning spray or wipe, according to the label instructions. Labels contain instructions for safe and effective use of the cleaning product including precautions you should take when applying the product, such as wearing gloves and making sure you have good ventilation during use of the product. Monitor your symptoms Seek prompt medical attention if your illness is worsening (e.g., difficulty breathing).Beforeseeking care, call your healthcare provider and tell them that you have, or are being evaluated for, COVID-19. Put on a face mask before you enter the facility. These steps will help the healthcare providers office to keep other people in the office or waiting room from getting infected or exposed. Ask your healthcare provider to call the local or state health department. Persons who are placed under active monitoring or facilitated self- monitoring should follow instructions provided by their local health department or occupational health professionals, as appropriate. When working with your local health department check their available hours. If you have a medical emergency and need to call 911, notify the dispatch personnel that you have, or are being evaluated for COVID-19. If possible, put on a face mask before emergency medical services arrive. Discontinuing home isolation Patients with confirmed COVID-19 should remain under home isolation precautions until the risk of secondary transmission to others is thought to be low. The decision to discontinue home isolation precautions should be made on a fext-my-qmmx basis, in consultation with healthcare providers and state and local health departments. Pending Studies at Discharge: Yes Stand-Alone Forms: [facility], Smoking Cessation Medications and DC Order Prescriptions: No Action No Known Home Medications Discharge Orders: Discharge Order (Routine); Ordered 11/21/22 Ordered By: Jethro Emery Admission Data Admit Date/Time: 11/19/22 05:42 Attending Provider: Jethro Emery Admit Provider: Luis Yarbrough Primary Care Provider: Lacy Arguello Other Providers: Luis Yarbrough ; Javier Gil ; Carlos Coulter ; Hans Kulkarni I. ; Antonio Brown II ; Joann Pozo ; Jose Carvalho ; Sundar Preston ; Parvez Leon
[2022-11-22 01:52] LABS: Babesia microti DNA Not Detected (Not Detected)
== END 2022-11-21 16:07 | disposition home or self-care (01) | DRG 179 ==
LOC: EDBD → ED 02:41 → 4W 05:42 → SUATTDRO 05:42 → 4W 06:50